=== PATIENT | female | born 1950 | race Two or more races ===

== ENCOUNTER → 2017-09-26 | Outpatient (CLI) | payer BC | END | disposition home or self-care (01) | LOC: HKI 13:48 | DX: M17.0 Bilateral primary osteoarthritis of knee (principal) | CPT/HCPCS: Z7500 ==

== ENCOUNTER → 2017-10-13 | Outpatient (CLI) | payer BC | END | disposition home or self-care (01) | LOC: HKI 09:54 | DX: M17.0 Bilateral primary osteoarthritis of knee (principal) | CPT/HCPCS: 20610 ==